=== PATIENT | female | born 1935 | race Two or more races ===

== ENCOUNTER 2022-06-01 21:10 | Inpatient (IN) | payer OTHER ==
[~2022-06-01] VITALS: Ht 147.3 cm; Wt 50.7 kg
[2022-06-01] MEDS ORDERED: MORPHINE SULFATE INJ 2 MG/ml SYRG IV PRN ×2 (22:15)
[2022-06-01] MEDS ORDERED: ACETAMINOPHEN 500 MG TAB PO PRN (22:15)
[2022-06-01] MEDS ORDERED: METOPROLOL TARTRATE 25 MG TAB PO ONE (22:15)
[2022-06-01] MEDS ORDERED: ONDANSETRON HCL 4 MG/2 ML VIAL IV PRN (22:15)
[2022-06-01] MEDS ORDERED: NITROGLYCERIN 0.4 MG SL TAB SL PRN (22:15)
[2022-06-02] VITALS (7 sets, daily range): BP systolic 124–153; BP diastolic 51–96
[2022-06-02] MEDS ORDERED: CLOP75TA70 PO (01:06)
[2022-06-02] MEDS ORDERED: ATOR40TA52 PO (01:06)
[2022-06-02] MEDS ORDERED: FENO160T8 PO (01:06)
[2022-06-02] MEDS ORDERED: ATEN50TA PO (01:06)
[2022-06-02] MEDS ORDERED: PAR20T PO (01:06)
[2022-06-02] MEDS ORDERED: MET25T PO (01:06)
[2022-06-02] MEDS ORDERED: LISI20TA28 PO (01:06)
[2022-06-02 06:07] LABS: Basophils # (auto) 0 10 ^3/uL (0-0.2); Basophils % (auto) 0.4 % (0.0-2.0); Eosinophils # (auto) 0.1 10 ^3/uL (0-0.8); Eosinophils % (auto) 1.1 % (0.0-7.0); Hematocrit 39.5 % (36.0-46.0); Hemoglobin 13.3 g/dL (12.2-16.2); Lymphocytes # (auto) 1.4 10 ^3/uL (0.4-5.4); Lymphocytes % (auto) 16.8 % (10.0-50.0); Mean Corpuscular Hemoglobin 27.9 pg (28.0-32.0); Mean Corpuscular Hgb Conc. 33.7 g/dL (32.0-36.0); Mean Corpuscular Volume 82.7 fL (80.0-100.0); Monocytes # (auto) 0.6 10 ^3/uL (0-1.3); Monocytes % (auto) 7.3 % (0.0-12.0); Neutrophils # (auto) 6.3 10 ^3/uL (1.6-8.6); Neutrophils % (auto) 74.4 % (37.0-80.0); Nucleated Red Blood Cells % 0.1 %; Red Blood Cells 4.78 10^6/uL (4.0-5.20); Red Cell Distribution Width 15.9 % (11.8-14.3); White Blood Cell 8.5 10^3/uL (4.4-10.8)
[2022-06-02 06:31] LABS: Calcium 10.5 mg/dL (8.5-10.1); Potassium 4.2 mmol/L (3.5-5.1)
[2022-06-02 06:36] LABS: BUN/Creatinine Ratio 41.3
[2022-06-02] MEDS: METOPROLOL TARTRATE 25 MG TAB PO SCH ×2 (08:18→22:02)
[2022-06-02] MEDS ORDERED: LISINOPRIL 10 MG TAB PO SCH (10:00)
[2022-06-02] MEDS: hydrALAZINE HCL 20 MG/ML VL IV PRN (12:13)
[2022-06-02] MEDS ORDERED: ALPRAZolam 0.25 MG TAB PO PRN (15:30)
[2022-06-02] MEDS ORDERED: ATORVASTATIN 20 MG TAB PO SCH (22:00)
[2022-06-02] MEDS: LISINOPRIL 10 MG TAB PO SCH (22:01)
[2022-06-03] MEDS: hydrALAZINE HCL 20 MG/ML VL IV PRN (04:04)
[2022-06-03 04:40] VITALS: BP 171/84
[2022-06-03 08:35] VITALS: BP 95/57
[2022-06-03 09:00] VITALS: BP 102/41
[2022-06-03] MEDS ORDERED: amLODIPine BESYLATE 5 MG TAB PO SCH (10:00)
[2022-06-03] MEDS ORDERED: PARoxetine 20 MG TAB PO SCH (10:00)
[2022-06-03] MEDS: METOPROLOL TARTRATE 25 MG TAB PO SCH ×2 (10:00→10:37)
[2022-06-03] MEDS: LISINOPRIL 10 MG TAB PO SCH ×2 (10:00→10:39)
[2022-06-03] MEDS ORDERED: CLOPIDOGREL BISULFATE 75 MG TAB PO SCH (10:00)
[2022-06-03 12:56] VITALS: BP 141/77
[2022-06-03] MEDS ORDERED: PAR20T PO (13:52)
[2022-06-03] MEDS ORDERED: MET25T PO (13:52)
[2022-06-03] MEDS ORDERED: AMLO-496 PO ×2 (13:52)
[2022-06-03] MEDS ORDERED: LISI20TA28 PO (13:52)
[2022-06-03 15:45] VITALS: BP 102/41
[2022-06-03 17:00] VITALS: BP 120/74
== END 2022-06-03 18:30 | disposition home or self-care (01) | DRG 313 ==
LOC: TELE-CENTR 21:10
PROVIDERS: ADMIT Hospitalist; ATTEND Hospitalist
DX: R07.9 Chest pain, unspecified (principal); F32.A Depression, unspecified; Z20.822 Contact with and (suspected) exposure to COVID-19; F41.9 Anxiety disorder, unspecified; I11.9 Hypertensive heart disease without heart failure; I25.2 Old myocardial infarction; Z82.49 Family history of ischemic heart disease and other diseases of the circulatory system; Z88.0 Allergy status to penicillin
CPT/HCPCS: 36415; 71275; 80048; 80061; 84484; 85025; 85379; 87081; 87426; 93306; G0378

== ENCOUNTER 2023-08-05 13:40 | Emergency (ER) | payer OTHER ==
[~2023-08-05] VITALS: Ht 162.6 cm; Wt 68.1 kg
[~2023-08-05 13:40] MED LIST: ATOR40TA52 PO; CLOP75TA70 PO; FENO160T PO; LISI20TA56 PO; MET25T PO; PAR20T PO
[2023-08-05] MEDS: SODIUM CHLORIDE 0.9% 1,650 ML IV ONE (14:15)
[2023-08-05 14:31] LABS: Eosinophils # (auto) 0.1 10 ^3/uL (0-0.8); Hematocrit 32.4 % (36.0-46.0); Lymphocytes # (auto) 1.2 10 ^3/uL (0.4-5.4); Monocytes # (auto) 0.6 10 ^3/uL (0-1.3)
[2023-08-05 14:34] LABS: Basophils # (auto) 0.1 10 ^3/uL (0-0.2); Basophils % (auto) 0.4 % (0.0-2.0); Eosinophils % (auto) 0.6 % (0.0-7.0); Hemoglobin 9.7 g/dL (12.2-16.2); Mean Corpuscular Hemoglobin 22.1 pg (28.0-32.0); Mean Corpuscular Hgb Conc. 30.1 g/dL (32.0-36.0); Mean Corpuscular Volume 73.6 fL (80.0-100.0); Monocytes % (auto) 4.1 % (0.0-12.0); Neutrophils % (auto) 86.9 % (37.0-80.0); Red Cell Distribution Width 17.8 % (11.8-14.3); White Blood Cell 14.9 10^3/uL (4.4-10.8)
[2023-08-05 14:44] LABS: INR 1.08 (0.9-1.15); Partial Thromboplastin Time 28.8 SEC (24.5-34.5); Prothrombin Time 11.4 sec (9.3-11.8)
[2023-08-05 15:11] LABS: Acetaminophen < 2.0 UG/ML (10.0-20.0); Albumin 4.1 g/dL (3.2-4.8); Alkaline Phosphatase 85 U/L (46-116); Anion Gap 3 (5-15); Aspartate Aminotransferase < 8 U/L (13-40); BUN/Creatinine Ratio 24.7 (10.0-20.0); Bilirubin, Total 0.3 mg/dL (0.2-1.0); Blood Alcohol < 3.0 mg/dL (<10); Blood Urea Nitrogen 21 mg/dL (9-23); Calcium 11.1 mg/dL (8.5-10.1); Carbon Dioxide 28 mmol/L (20-30); Chloride 110 mmol/L (98-107); Glucose 130 mg/dL (74-106); Magnesium 1.4 mg/dL (1.6-2.6); Potassium 4.5 mmol/L (3.5-5.1); Sodium 141 mmol/L (136-145); Total Protein 6.4 g/dL (5.7-8.2)
[2023-08-05 15:13] LABS: Salicylate < 3.0 mg/dL (2.8-20.0)
[2023-08-05 15:16] LABS: Alanine Aminotransferase < 9 U/L (7-40)
[2023-08-05] MEDS: MECLIZINE HCL 25 MG TAB PO ONE (15:47)
[2023-08-05] MEDS: CIPROFLOXACIN 400MG/200ML 200 ML IV ONE (16:17)
[2023-08-05] MEDS: FUROSEMIDE 40 MG/4 ML VIAL IV ONE (19:41)
[2023-08-05] MEDS: VANCOMYCIN 1GM/200ML 200 ML IV ONE (19:42)
[2023-08-05] MEDS: AZTREONAM 1GM INJ 1 GM in D5W 5% 50 ML IV ONE (22:15)
[2023-08-05 22:25] LABS: Urine Bacteria FEW /hpf (None Seen); Urine Blood Negative /uL (Negative); Urine Clarity Clear (Clear); Urine Color Colorless (Yellow); Urine Protein, UAD Negative (Negative); Urine Specific Gravity 1.006 (1.001-1.035); Urine Urobilinogen Normal (Negative); Urine WBC 14 /hpf (0 - 5)
[2023-08-05 22:29] LABS: Amphetamine Screen, Urine Neg (NEGATIVE)
[2023-08-05 22:30] LABS: Barbiturate Scree,Urine Neg (NEGATIVE); Benzodiazephine Screen, Urine Neg (NEGATIVE); Cocaine Screen, Urine Neg (NEGATIVE); Opiate Scree,Urine Neg (NEGATIVE)
[2023-08-05 22:31] LABS: Cannabinoid Screen, Urine Neg (NEGATIVE); Phencyclidine Screen, Urine Neg (NEGATIVE)
[2023-08-05 23:24] VITALS: BP 153/95; PULSE 120; RESP 16; TEMP 98.8; O2SAT 97
[2023-08-05] MEDS: ASPirin-EC 325mg tab PO ONE (23:32)
== END 2023-08-05 23:44 | disposition short-term general hospital (02) ==
LOC: ER 13:40
DX: I63.9 Cerebral infarction, unspecified (principal); A41.9 Sepsis, unspecified organism; I10 Essential (primary) hypertension; D72.829 Elevated white blood cell count, unspecified; G93.89 Other specified disorders of brain; R00.0 Tachycardia, unspecified; R09.89 Other specified symptoms and signs involving the circulatory and respiratory systems; Z79.899 Other long term (current) drug therapy
CPT/HCPCS: 36415; 70450; 71045; 80053; 80307; 80320; 80329; 81001; 83605; 83735; 83880; 84484; 85025; 85610; 85730; 87040; 93005; 96361; 96365; 96367; 96375; 99291; J0744; J1940; J3370; J7030; J7040; J7060; J8597

== ENCOUNTER 2023-08-22 14:39 | Inpatient (IN) | payer OTHER ==
[~2023-08-22] VITALS: Ht 147.3 cm; Wt 51.5 kg
[2023-08-22 18:00] VITALS: PULSE 71; RESP 21; O2SAT 96
[2023-08-22 18:04] LABS: Eosinophils # (auto) 0.1 10 ^3/uL (0-0.8); Monocytes # (auto) 0.8 10 ^3/uL (0-1.3); Neutrophils # (auto) 14.8 10 ^3/uL (1.6-8.6)
[2023-08-22 18:06] LABS: Basophils # (auto) 0.1 10 ^3/uL (0-0.2); Basophils % (auto) 0.4 % (0.0-2.0); Eosinophils % (auto) 0.5 % (0.0-7.0); Hematocrit 33.2 % (36.0-46.0); Hemoglobin 10.4 g/dL (12.2-16.2); Lymphocytes # (auto) 1.2 10 ^3/uL (0.4-5.4); Lymphocytes % (auto) 7.3 % (10.0-50.0); Mean Corpuscular Hemoglobin 24.7 pg (28.0-32.0); Mean Corpuscular Hgb Conc. 31.2 g/dL (32.0-36.0); Mean Corpuscular Volume 78.9 fL (80.0-100.0); Neutrophils % (auto) 86.8 % (37.0-80.0); Red Cell Distribution Width 26.8 % (11.8-14.3)
[2023-08-22 18:11] LABS: Chloride 106 mmol/L (98-107); Sodium 140 mmol/L (136-145)
[2023-08-22 18:12] LABS: Anion Gap 3 (5-15); Calcium 10.9 mg/dL (8.5-10.1); Carbon Dioxide 31 mmol/L (20-30)
[2023-08-22 18:17] LABS: Blood Urea Nitrogen 20 mg/dL (9-23); Glucose 81 mg/dL (74-106)
[2023-08-22 18:27] LABS: Urine Bacteria None Seen /hpf (None Seen)
[2023-08-22 18:42] LABS: Urine Blood 1+ /uL (Negative); Urine Clarity Turbid (Clear); Urine Color Yellow (Yellow); Urine Hyaline Cast FEW /lpf (0 - 2); Urine Mucus FEW (None Seen); Urine Protein, UAD 1+ (Negative); Urine Specific Gravity 1.023 (1.001-1.035); Urine Urobilinogen 3 mg/dL (Negative); Urine WBC 365 /hpf (0 - 5); Urine WBC Clumps PRESENT /hpf (None Seen)
[2023-08-22] MEDS: FUROSEMIDE 40 MG/4 ML VIAL IV ONE (19:05)
[2023-08-22] MEDS: methylPREDNISolone SOD SUCC 125 MG/2 ML VL IV ONE (19:06)
[2023-08-22 20:00] VITALS: PULSE 76; RESP 20; O2SAT 96
[2023-08-22 20:02] LABS: Rapid Influenza A Negative (Negative); Rapid Influenza B Negative (Negative)
[2023-08-22 20:03] LABS: COVID19 ANTIGEN SOFIA FIA NEGATIVE (NEGATIVE)
[2023-08-22] MEDS ORDERED: MORPHINE SULFATE INJ 2 MG/ml SYRG IV PRN (23:00)
[2023-08-22] MEDS ORDERED: ONDANSETRON HCL 4 MG/2 ML VIAL IV PRN (23:00)
[2023-08-22] MEDS ORDERED: HYDROcodone-ACET 5/325MG TAB PO PRN (23:00)
[2023-08-22] MEDS ORDERED: NITROGLYCERIN 0.4 MG SL TAB SL PRN (23:00)
[2023-08-23] VITALS (22 sets, daily range): BP systolic 104–138; BP diastolic 54–78; PULSE 73–110; RESP 16–22; TEMP 97.4–98.7; O2SAT 93–100
[2023-08-23] MEDS: IPRATROPIUM BROM 0.5 MG/2.5ML INH SOL NEB SCH (02:20)
[2023-08-23] MEDS: ALBUTEROL SULF 2.5 MG/0.5ML(0.5%) NEB SOLN NEB SCH (02:20)
[2023-08-23] MEDS: IOHEXOL 350 MG/ML 100ML IJ ONE (04:16)
[2023-08-23] MEDS: METOPROLOL TARTRATE 25 MG TAB PO SCH (05:45)
[2023-08-23] MEDS: hydrALAZINE HCL 20 MG/ML VL IV PRN (06:35)
[2023-08-23 06:46] LABS: Basophils # (auto) 0 10 ^3/uL (0-0.2); Basophils % (auto) 0.1 % (0.0-2.0); Eosinophils # (auto) 0 10 ^3/uL (0-0.8); Hemoglobin 10.5 g/dL (12.2-16.2); Lymphocytes # (auto) 0.4 10 ^3/uL (0.4-5.4); Mean Corpuscular Hemoglobin 24.7 pg (28.0-32.0); Monocytes # (auto) 0.1 10 ^3/uL (0-1.3); Neutrophils % (auto) 96.4 % (37.0-80.0)
[2023-08-23 06:49] LABS: Hematocrit 33.6 % (36.0-46.0); Lymphocytes % (auto) 2.8 % (10.0-50.0); Mean Corpuscular Hgb Conc. 31.2 g/dL (32.0-36.0); Mean Corpuscular Volume 79.4 fL (80.0-100.0); Monocytes % (auto) 0.7 % (0.0-12.0); Neutrophils # (auto) 12.9 10 ^3/uL (1.6-8.6); Red Blood Cells 4.24 10^6/uL (4.0-5.20); White Blood Cell 13.4 10^3/uL (4.4-10.8)
[2023-08-23 06:54] LABS: Chloride 104 mmol/L (98-107); Potassium 3.5 mmol/L (3.5-5.1); Sodium 140 mmol/L (136-145)
[2023-08-23 06:55] LABS: Anion Gap 6 (5-15); Calcium 10.8 mg/dL (8.5-10.1); Carbon Dioxide 30 mmol/L (20-30)
[2023-08-23 07:00] LABS: BUN/Creatinine Ratio 19.1 (10.0-20.0); Blood Urea Nitrogen 13 mg/dL (9-23); Glucose 156 mg/dL (74-106)
[2023-08-23 07:11] LABS: Red Cell Distribution Width 27.6 % (11.8-14.3)
[2023-08-23 08:16] LABS: Anisocytosis Moderate; Hypochromia Slight
[2023-08-23 08:17] LABS: Platelet Estimate Adequate; Tear Drop Cells FEW
[2023-08-23] MEDS: methylPREDNISolone SOD SUCC 40 MG/ML VL IV SCH (09:51)
[2023-08-23] MEDS: levoFLOXacin 500MG 100 ML IV SCH (09:51)
[2023-08-23] MEDS: FUROSEMIDE 20 MG/2 ML VIAL IV SCH (09:57)
[2023-08-23] MEDS ORDERED: METOPROLOL TARTRATE 25 MG TAB PO SCH (10:00)
[2023-08-24] VITALS (16 sets, daily range): BP systolic 115–159; BP diastolic 61–83; PULSE 78–118; RESP 17–21; TEMP 97.4–98.9; O2SAT 94–100
[2023-08-24 05:39] LABS: Basophils # (auto) 0 10 ^3/uL (0-0.2); Eosinophils # (auto) 0 10 ^3/uL (0-0.8); Hemoglobin 10.6 g/dL (12.2-16.2); Lymphocytes # (auto) 0.6 10 ^3/uL (0.4-5.4); Monocytes # (auto) 0.4 10 ^3/uL (0-1.3)
[2023-08-24 05:41] LABS: Basophils % (auto) 0.1 % (0.0-2.0); Mean Corpuscular Hemoglobin 24.7 pg (28.0-32.0); Mean Corpuscular Hgb Conc. 31.2 g/dL (32.0-36.0); Mean Corpuscular Volume 79.3 fL (80.0-100.0); Monocytes % (auto) 2.6 % (0.0-12.0); Neutrophils # (auto) 14.6 10 ^3/uL (1.6-8.6); Neutrophils % (auto) 93.3 % (37.0-80.0); Red Blood Cells 4.28 10^6/uL (4.0-5.20); White Blood Cell 15.7 10^3/uL (4.4-10.8)
[2023-08-24 05:51] LABS: Chloride 104 mmol/L (98-107); Potassium 3.9 mmol/L (3.5-5.1); Sodium 139 mmol/L (136-145)
[2023-08-24 05:52] LABS: Anion Gap 4 (5-15); Calcium 11.4 mg/dL (8.7-10.4); Carbon Dioxide 31 mmol/L (20-30)
[2023-08-24 05:57] LABS: BUN/Creatinine Ratio 22.7 (10.0-20.0); Blood Urea Nitrogen 20 mg/dL (9-23); Glucose 144 mg/dL (74-106)
[2023-08-24 06:04] LABS: Red Cell Distribution Width 27.7 % (11.8-14.3)
[2023-08-24] MEDS: DOCUSATE SOD 100 MG CAP PO PRN (06:27)
[2023-08-24 07:05] LABS: Anisocytosis Moderate; Hypochromia Slight; Ovalocytes FEW; Platelet Estimate Adequate
[2023-08-24] MEDS: ALBUTEROL SULF 2.5 MG/0.5ML(0.5%) NEB SOLN NEB SCH (14:01)
[2023-08-24] MEDS: ACETAMINOPHEN 325 MG TAB PO PRN (16:22)
[2023-08-24] MEDS: MELATONIN 5 MG TAB PO ONE (21:09)
[2023-08-24] MEDS: IPRATROPIUM BROM 0.5 MG/2.5ML INH SOL NEB SCH (21:55)
[2023-08-25] VITALS (12 sets, daily range): BP systolic 113–165; BP diastolic 65–96; PULSE 77–110; RESP 17–79; TEMP 97.4–98.6; O2SAT 94–99
[2023-08-25 05:48] LABS: Basophils # (auto) 0 10 ^3/uL (0-0.2); Eosinophils # (auto) 0 10 ^3/uL (0-0.8); Hematocrit 32.7 % (36.0-46.0); Hemoglobin 10.3 g/dL (12.2-16.2); Lymphocytes # (auto) 0.5 10 ^3/uL (0.4-5.4); Lymphocytes % (auto) 3.6 % (10.0-50.0); Mean Corpuscular Hemoglobin 24.9 pg (28.0-32.0); Mean Corpuscular Hgb Conc. 31.6 g/dL (32.0-36.0); Mean Corpuscular Volume 78.9 fL (80.0-100.0); Monocytes # (auto) 0.3 10 ^3/uL (0-1.3); Monocytes % (auto) 2.2 % (0.0-12.0); Neutrophils # (auto) 13.6 10 ^3/uL (1.6-8.6); Neutrophils % (auto) 94.2 % (37.0-80.0); Red Blood Cells 4.14 10^6/uL (4.0-5.20); White Blood Cell 14.4 10^3/uL (4.4-10.8)
[2023-08-25 05:49] LABS: Red Cell Distribution Width 27.3 % (11.8-14.3)
[2023-08-25 06:15] LABS: Calcium 11.2 mg/dL (8.5-10.1); Chloride 104 mmol/L (98-107); Sodium 139 mmol/L (136-145)
[2023-08-25 06:16] LABS: Anion Gap 3 (5-15); Carbon Dioxide 32 mmol/L (20-30)
[2023-08-25 06:21] LABS: BUN/Creatinine Ratio 34.8 (10.0-20.0); Glucose 147 mg/dL (74-106)
[2023-08-25 06:22] LABS: Blood Urea Nitrogen 32 mg/dL (9-23)
[2023-08-25] MEDS ORDERED: FURO40TA4 PO (12:47)
[2023-08-25] MEDS ORDERED: IPRA0.00 IN (12:47)
[2023-08-25] MEDS ORDERED: LISI20TA56 PO (12:47)
[2023-08-25] MEDS ORDERED: PRED20TA2 PO (12:47)
[2023-08-25] MEDS ORDERED: LEVO500T91 PO (12:47)
== END 2023-08-25 17:00 | disposition home health service (06) | DRG 291 ==
LOC: EDBD 14:39 → ER 14:41 → TELE 23:10 → TELE-WESTW 23:10
PROVIDERS: ADMIT Nurse Practitioner Family; ATTEND Internal Medicine
DX: I11.0 Hypertensive heart disease with heart failure (principal); I50.33 Acute on chronic diastolic (congestive) heart failure; J96.01 Acute respiratory failure with hypoxia; J44.1 Chronic obstructive pulmonary disease with (acute) exacerbation; N39.0 Urinary tract infection, site not specified; J43.9 Emphysema, unspecified; G93.9 Disorder of brain, unspecified; R53.81 Other malaise; Z20.822 Contact with and (suspected) exposure to COVID-19; F17.210 Nicotine dependence, cigarettes, uncomplicated; I71.9 Aortic aneurysm of unspecified site, without rupture; R00.0 Tachycardia, unspecified; Z88.0 Allergy status to penicillin; Z82.49 Family history of ischemic heart disease and other diseases of the circulatory system; Z79.899 Other long term (current) drug therapy; Z79.02 Long term (current) use of antithrombotics/antiplatelets; Z71.6 Tobacco abuse counseling
CPT/HCPCS: 36415; 71045; 71275; 80048; 81001; 83605; 83880; 84484; 85025; 85379; 87040; 87086; 87088; 87186; 87426; 87804; 93005; 93306; 93970; 94640; 96374; 96375; G0378; J1956

== ENCOUNTER 2023-09-08 12:33 | Inpatient (IN) | payer OTHER ==
[~2023-09-08] VITALS: Ht 165.1 cm; Wt 44.4 kg
[2023-09-08 01:00] VITALS: BP 161/95; PULSE 114; RESP 21; TEMP 98.4; O2SAT 97
[~2023-09-08 12:33] MED LIST changes: +FURO40TA4 PO; +IPRA0.00 IN; +LEVO500T91 PO; +PRED20TA2 PO
[2023-09-08 14:02] LABS: Basophils # (auto) 0.1 10 ^3/uL (0-0.2); Eosinophils # (auto) 0.1 10 ^3/uL (0-0.8); Eosinophils % (auto) 0.6 % (0.0-7.0); Hemoglobin 11.3 g/dL (12.2-16.2); Monocytes # (auto) 1.1 10 ^3/uL (0-1.3); Monocytes % (auto) 5.8 % (0.0-12.0)
[2023-09-08 14:03] LABS: Basophils % (auto) 0.7 % (0.0-2.0); Hematocrit 35.3 % (36.0-46.0); Lymphocytes # (auto) 1.2 10 ^3/uL (0.4-5.4); Mean Corpuscular Hemoglobin 25.5 pg (28.0-32.0); Mean Corpuscular Volume 79.5 fL (80.0-100.0); Neutrophils # (auto) 17.1 10 ^3/uL (1.6-8.6); Neutrophils % (auto) 86.9 % (37.0-80.0); Red Blood Cells 4.44 10^6/uL (4.0-5.20); White Blood Cell 19.7 10^3/uL (4.4-10.8)
[2023-09-08 14:07] LABS: Red Cell Distribution Width 26.5 % (11.8-14.3)
[2023-09-08 14:21] LABS: Albumin 4.2 g/dL (3.2-4.8); Alkaline Phosphatase 85 U/L (46-116); Anion Gap 7 (5-15); Aspartate Aminotransferase 11 U/L (13-40); BUN/Creatinine Ratio 23.9 (10.0-20.0); Bilirubin, Total 0.4 mg/dL (0.2-1.0); Blood Urea Nitrogen 16 mg/dL (9-23); Calcium 11.2 mg/dL (8.5-10.1); Carbon Dioxide 26 mmol/L (20-30); Chloride 107 mmol/L (98-107); Glucose 79 mg/dL (74-106); Potassium 3.4 mmol/L (3.5-5.1); Sodium 140 mmol/L (136-145); Total Protein 6.6 g/dL (5.7-8.2)
[2023-09-08 14:22] LABS: Alanine Aminotransferase < 9 U/L (7-40)
[2023-09-08 14:24] LABS: Anisocytosis Moderate; Ovalocytes FEW; Platelet Estimate Adequate; Tear Drop Cells FEW
[2023-09-08 15:00] VITALS: PULSE 155; RESP 24; O2SAT 96
[2023-09-08] MEDS: ADENOSINE 6 MG/2 ML INJ IV ONE (15:10)
[2023-09-08] MEDS: SODIUM CHLORIDE 0.9% 1,000 ML IV ONE (15:30)
[2023-09-08 15:48] LABS: Urine Bacteria None Seen /hpf (None Seen)
[2023-09-08] MEDS: dilTIAZem 25 MG/5 ML VIAL IV ONE (15:51)
[2023-09-08] MEDS: levoFLOXacin 500MG 100 ML IV ONE (15:51)
[2023-09-08 16:22] LABS: Urine Blood 3+ /uL (Negative); Urine Clarity Ex.Turbid (Clear); Urine Color Light-Red (Yellow); Urine Protein, UAD 1+ (Negative); Urine Specific Gravity 1.008 (1.001-1.035); Urine Urobilinogen Normal (Negative); Urine WBC 422 /hpf (0 - 5); Urine pH 5.5 (5.0-9.0)
[2023-09-08] MEDS ORDERED: ERTAPENEM SOD INJ 1 GM in SODIUM CHL 0.9% 50 ML IV ONE (18:00)
[2023-09-08] MEDS ORDERED: HYDROcodone-ACET 5/325MG TAB PO PRN ×2 (18:00→18:15)
[2023-09-08] MEDS ORDERED: NITROGLYCERIN 0.4 MG SL TAB SL PRN ×2 (18:00→18:15)
[2023-09-08] MEDS ORDERED: SOD CHL 0.45% 1,000 ML IV SCH (18:00)
[2023-09-08] MEDS ORDERED: MORPHINE SULFATE INJ 2 MG/ml SYRG IV PRN ×2 (18:00→18:15)
[2023-09-08] MEDS ORDERED: ONDANSETRON HCL 4 MG/2 ML VIAL IV PRN ×2 (18:00→18:15)
[2023-09-08] MEDS ORDERED: ACETAMINOPHEN 325 MG TAB PO PRN ×2 (18:00→18:15)
[2023-09-08] MEDS ORDERED: IPRATROPIUM BROM 0.5 MG/2.5ML INH SOL NEB SCH (18:00)
[2023-09-08 18:34] VITALS: BP 125/89; PULSE 146; RESP 16; TEMP 98.7; O2SAT 96
[2023-09-08 18:53] VITALS: O2SAT 98
[2023-09-08] MEDS: SOD CHL 0.45% 1,000 ML IV SCH (19:30)
[2023-09-08 20:00] VITALS: PULSE 142; RESP 22; O2SAT 96
[2023-09-08] MEDS: METOPROLOL TARTRATE 25 MG TAB PO SCH (20:08)
[2023-09-08] MEDS: METOPROLOL TARTRATE 1MG/1ML-5ML VIAL IV ONE (20:20)
[2023-09-08] MEDS: ERTAPENEM SOD INJ 1 GM in SODIUM CHL 0.9% 50 ML IV ONE (20:30)
[2023-09-08] MEDS: ERTAPENEM SOD 1 GM INJ VIAL ONE (21:10)
[2023-09-08] MEDS ORDERED: METOPROLOL TARTRATE 25 MG TAB PO SCH (22:00)
[2023-09-08 23:50] VITALS: BP 155/97; PULSE 100; PULSE 83; RESP 16; RESP 18; TEMP 97.9; O2SAT 95
[2023-09-09] VITALS (15 sets, daily range): BP systolic 119–164; BP diastolic 64–94; PULSE 91–121; RESP 16–21; TEMP 97.5–99; O2SAT 93–100
[2023-09-09] MEDS: dilTIAZem 25 MG/5 ML VIAL IV ONE (00:54)
[2023-09-09] MEDS: IPRATROPIUM BROM 0.5 MG/2.5ML INH SOL NEB SCH (05:58)
[2023-09-09] MEDS: MAGNESIUM SULFATE 1GM/100ML 100 ML IV SCH (07:00)
[2023-09-09] MEDS: POTASSIUM CHL 20MEQ/100ML 100 ML IV SCH (07:11)
[2023-09-09] MEDS: ERTAPENEM SOD INJ 1 GM in SODIUM CHL 0.9% 50 ML IV SCH (10:00)
[2023-09-09] MEDS ORDERED: FUROSEMIDE 40 MG TAB PO SCH (10:00)
[2023-09-09] MEDS ORDERED: PARoxetine 20 MG TAB PO SCH (10:00)
[2023-09-09] MEDS: CLOPIDOGREL BISULFATE 75 MG TAB PO SCH (10:00)
[2023-09-09] MEDS ORDERED: ERTAPENEM SOD INJ 1 GM in SODIUM CHL 0.9% 50 ML IV SCH (10:00)
[2023-09-09] MEDS ORDERED: LISINOPRIL 20 MG TAB PO SCH (10:00)
[2023-09-09] MEDS ORDERED: CLOPIDOGREL BISULFATE 75 MG TAB PO SCH (10:00)
[2023-09-09] MEDS ORDERED: PATIENTS OWN MEDICATION (Atorvastatin Calcium 1 TAB) PO SCH (10:00)
[2023-09-09 10:23] LABS: Calcium 10.4 mg/dL (8.5-10.1); Chloride 107 mmol/L (98-107); Potassium 3.6 mmol/L (3.5-5.1); Sodium 139 mmol/L (136-145)
[2023-09-09 10:24] LABS: Anion Gap 4 (5-15); Carbon Dioxide 28 mmol/L (20-30)
[2023-09-09 10:29] LABS: BUN/Creatinine Ratio 21.4 (10.0-20.0); Blood Urea Nitrogen 15 mg/dL (9-23); Glucose 156 mg/dL (74-106)
[2023-09-09] MEDS: FUROSEMIDE 40 MG TAB PO SCH (11:48)
[2023-09-09] MEDS: ATORVASTATIN 20 MG TAB PO SCH (11:49)
[2023-09-09] MEDS: LISINOPRIL 20 MG TAB PO SCH (11:49)
[2023-09-09] MEDS: PARoxetine 20 MG TAB PO SCH (11:50)
[2023-09-10] VITALS (15 sets, daily range): BP systolic 93–149; BP diastolic 47–84; PULSE 72–112; RESP 14–20; TEMP 97.2–98.7; O2SAT 93–100
[2023-09-10 07:12] LABS: Calcium 10.7 mg/dL (8.5-10.1); Carbon Dioxide 24 mmol/L (20-30)
[2023-09-10 07:14] LABS: Chloride 105 mmol/L (98-107); Potassium 3.9 mmol/L (3.5-5.1)
[2023-09-10 07:15] LABS: Anion Gap 5 (5-15); Sodium 134 mmol/L (136-145)
[2023-09-10 07:18] LABS: BUN/Creatinine Ratio 16.2 (10.0-20.0); Blood Urea Nitrogen 11 mg/dL (9-23); Glucose 80 mg/dL (74-106)
[2023-09-10 07:20] LABS: INR 1.13 (0.9-1.15); Partial Thromboplastin Time 26.1 SEC (24.5-34.5); Prothrombin Time 11.9 sec (9.3-11.8)
[2023-09-10 09:28] LABS: Eosinophils # (auto) 0.1 10 ^3/uL (0-0.8); Hemoglobin 11.2 g/dL (12.2-16.2); Lymphocytes # (auto) 0.7 10 ^3/uL (0.4-5.4); Mean Corpuscular Hemoglobin 25.6 pg (28.0-32.0); Monocytes # (auto) 0.8 10 ^3/uL (0-1.3); Neutrophils % (auto) 90.2 % (37.0-80.0)
[2023-09-10 09:30] LABS: Basophils # (auto) 0.1 10 ^3/uL (0-0.2); Basophils % (auto) 0.4 % (0.0-2.0); Eosinophils % (auto) 0.3 % (0.0-7.0); Hematocrit 35.4 % (36.0-46.0); Lymphocytes % (auto) 4.1 % (10.0-50.0); Mean Corpuscular Hgb Conc. 31.6 g/dL (32.0-36.0); Mean Corpuscular Volume 80.9 fL (80.0-100.0); Red Blood Cells 4.37 10^6/uL (4.0-5.20); Red Cell Distribution Width 25.3 % (11.8-14.3); White Blood Cell 16.7 10^3/uL (4.4-10.8)
[2023-09-10] MEDS ORDERED: PARO1TAB33 PO (12:21)
[2023-09-10] MEDS ORDERED: METO-159 PO (12:21)
[2023-09-10] MEDS ORDERED: OMEP20TA PO (12:23)
[2023-09-10] MEDS: MUPIROCIN 2% OINT 15gm or 22gm FOR MRSA NARES EACHNOSTRI SCH (21:55)
[2023-09-11] VITALS (13 sets, daily range): BP systolic 91–135; BP diastolic 52–80; PULSE 61–122; RESP 14–20; TEMP 98–98.6; O2SAT 91–100
[2023-09-11 07:11] LABS: Basophils # (auto) 0 10 ^3/uL (0-0.2); Eosinophils # (auto) 0.1 10 ^3/uL (0-0.8)
[2023-09-11 07:14] LABS: Basophils % (auto) 0.3 % (0.0-2.0); Eosinophils % (auto) 0.9 % (0.0-7.0); Hemoglobin 10.8 g/dL (12.2-16.2); Lymphocytes # (auto) 0.8 10 ^3/uL (0.4-5.4); Lymphocytes % (auto) 5.3 % (10.0-50.0); Mean Corpuscular Hemoglobin 25.4 pg (28.0-32.0); Mean Corpuscular Hgb Conc. 31.7 g/dL (32.0-36.0); Mean Corpuscular Volume 80.3 fL (80.0-100.0); Monocytes # (auto) 0.8 10 ^3/uL (0-1.3); Monocytes % (auto) 5.8 % (0.0-12.0); Neutrophils # (auto) 12.7 10 ^3/uL (1.6-8.6); Neutrophils % (auto) 87.7 % (37.0-80.0); Red Blood Cells 4.24 10^6/uL (4.0-5.20); White Blood Cell 14.5 10^3/uL (4.4-10.8)
[2023-09-11 07:16] LABS: Red Cell Distribution Width 25.6 % (11.8-14.3)
[2023-09-11] MEDS ORDERED: MUPI2OIN2 EACHNOSTRI (10:59)
== END 2023-09-11 17:30 | disposition home health service (06) | DRG 699 ==
LOC: EDBD 12:33 → ER 12:33 → TELE-CENTR 17:53 → TELE 17:58 → TELE-CENTR 23:59
PROVIDERS: ADMIT Hospitalist; ATTEND Hospitalist
PROC: 05H933Z Insertion of Infusion Device into Right Brachial Vein, Percutaneous Approach (ICD-10-PCS; principal; 2023-09-10)
PROC: B54MZZA Ultrasonography of Right Upper Extremity Veins, Guidance (ICD-10-PCS; 2023-09-10)
DX: T83.511A Infection and inflammatory reaction due to indwelling urethral catheter, initial encounter (principal); I47.20 Ventricular tachycardia, unspecified; J96.10 Chronic respiratory failure, unspecified whether with hypoxia or hypercapnia; Z16.12 Extended spectrum beta lactamase (ESBL) resistance; N39.0 Urinary tract infection, site not specified; E86.0 Dehydration; E83.42 Hypomagnesemia; E78.5 Hyperlipidemia, unspecified; J44.9 Chronic obstructive pulmonary disease, unspecified; I50.9 Heart failure, unspecified; I11.0 Hypertensive heart disease with heart failure; B96.20 Unspecified Escherichia coli [E. coli] as the cause of diseases classified elsewhere; I25.2 Old myocardial infarction; Z88.0 Allergy status to penicillin; Z87.891 Personal history of nicotine dependence; Z82.49 Family history of ischemic heart disease and other diseases of the circulatory system
CPT/HCPCS: 36415; 71045; 80048; 80053; 81001; 83605; 83735; 84484; 85025; 85610; 85730; 87040; 87081; 87086; 87088; 87186; 93005; 94640; 97163; G0378; J0153; J1335; J1956; J3480

== ENCOUNTER 2023-09-14 17:31 | Inpatient (IN) | payer OTHER ==
[~2023-09-14] VITALS: Ht 152.4 cm; Wt 49.1 kg
[~2023-09-14 17:31] MED LIST changes: -LEVO500T91 PO; -MET25T PO; +METO-159 PO; +MUPI2OIN2 EACHNOSTRI; +OMEP20TA PO; -PAR20T PO; +PARO1TAB33 PO; -PRED20TA2 PO
[2023-09-14 18:12] VITALS: PULSE 106; RESP 20; O2SAT 96
[2023-09-14 18:18] LABS: Basophils # (auto) 0 10 ^3/uL (0-0.2); Basophils % (auto) 0.3 % (0.0-2.0); Eosinophils # (auto) 0.1 10 ^3/uL (0-0.8); Eosinophils % (auto) 0.8 % (0.0-7.0); Hematocrit 30.7 % (36.0-46.0); Hemoglobin 9.7 g/dL (12.2-16.2); Lymphocytes % (auto) 9.2 % (10.0-50.0); Mean Corpuscular Hemoglobin 25.1 pg (28.0-32.0); Mean Corpuscular Hgb Conc. 31.7 g/dL (32.0-36.0); Mean Corpuscular Volume 79.2 fL (80.0-100.0); Monocytes # (auto) 0.7 10 ^3/uL (0-1.3); Monocytes % (auto) 6.8 % (0.0-12.0); Neutrophils # (auto) 8.8 10 ^3/uL (1.6-8.6); Neutrophils % (auto) 82.9 % (37.0-80.0); Red Blood Cells 3.88 10^6/uL (4.0-5.20); White Blood Cell 10.6 10^3/uL (4.4-10.8)
[2023-09-14 18:19] LABS: Red Cell Distribution Width 24.6 % (11.8-14.3)
[2023-09-14 18:45] LABS: Albumin 3.3 g/dL (3.2-4.8); Alkaline Phosphatase 82 U/L (46-116); Anion Gap 6 (5-15); Aspartate Aminotransferase 10 U/L (13-40); BUN/Creatinine Ratio 25.5 (10.0-20.0); Blood Urea Nitrogen 24 mg/dL (9-23); Calcium 9.9 mg/dL (8.5-10.1); Carbon Dioxide 29 mmol/L (20-30); Chloride 107 mmol/L (98-107); Glucose 97 mg/dL (74-106); Potassium 2.7 mmol/L (3.5-5.1); Sodium 142 mmol/L (136-145)
[2023-09-14 18:46] LABS: Bilirubin, Total 0.2 mg/dL (0.2-1.0); Total Protein 5.4 g/dL (5.7-8.2)
[2023-09-14 18:47] LABS: Alanine Aminotransferase < 9 U/L (7-40)
[2023-09-14 18:55] LABS: Urine Bacteria None Seen /hpf (None Seen)
[2023-09-14 19:46] LABS: Urine WBC 81 /hpf (0 - 5)
[2023-09-14 19:48] LABS: Urine Clarity TURBID (Clear); Urine Color Red (Yellow); Urine Protein, UAD 2+ (Negative); Urine Specific Gravity 1.021 (1.001-1.035); Urine Urobilinogen Normal (Negative); Urine pH 5.5 (5.0-9.0)
[2023-09-14 19:49] LABS: Urine Blood 3+ /uL (Negative)
[2023-09-14 19:49] LABS: INR 1.16 (0.9-1.15); Prothrombin Time 12.2 sec (9.3-11.8)
[2023-09-14] MEDS ORDERED: METOPROLOL TARTRATE 1MG/1ML-5ML VIAL IV ONE (21:00)
[2023-09-14] MEDS: POTASSIUM CHL 20MEQ/100ML 100 ML IV SCH (23:11)
[2023-09-14] MEDS ORDERED: ONDANSETRON HCL 4 MG/2 ML VIAL IV PRN (23:15)
[2023-09-14] MEDS: SODIUM CHLORIDE 0.9% 1,000 ML IV ONE (23:15)
[2023-09-14] MEDS ORDERED: ACETAMINOPHEN 325 MG TAB PO PRN (23:15)
[2023-09-15] VITALS (9 sets, daily range): BP systolic 130–143; BP diastolic 76–90; PULSE 83–115; RESP 18–20; TEMP 97.2–97.9; O2SAT 95–100
[2023-09-15] MEDS: MAGNESIUM SULFATE 1GM/100ML 100 ML IV SCH (02:48)
[2023-09-15 06:16] LABS: Basophils # (auto) 0 10 ^3/uL (0-0.2); Eosinophils # (auto) 0.1 10 ^3/uL (0-0.8); Hemoglobin 8.8 g/dL (12.2-16.2); Lymphocytes # (auto) 0.8 10 ^3/uL (0.4-5.4); Neutrophils # (auto) 8.2 10 ^3/uL (1.6-8.6); White Blood Cell 9.7 10^3/uL (4.4-10.8)
[2023-09-15 06:22] LABS: Basophils % (auto) 0.2 % (0.0-2.0); Hematocrit 27.5 % (36.0-46.0); Lymphocytes % (auto) 8.1 % (10.0-50.0); Mean Corpuscular Hemoglobin 25.8 pg (28.0-32.0); Mean Corpuscular Hgb Conc. 32.2 g/dL (32.0-36.0); Mean Corpuscular Volume 80.1 fL (80.0-100.0); Monocytes # (auto) 0.6 10 ^3/uL (0-1.3); Neutrophils % (auto) 84.7 % (37.0-80.0); Red Blood Cells 3.43 10^6/uL (4.0-5.20); Red Cell Distribution Width 24.4 % (11.8-14.3)
[2023-09-15 06:33] LABS: Anion Gap 5 (5-15); Carbon Dioxide 26 mmol/L (20-30); Chloride 101 mmol/L (98-107); Potassium 3.3 mmol/L (3.5-5.1)
[2023-09-15 06:34] LABS: Calcium 9.3 mg/dL (8.7-10.4)
[2023-09-15 06:39] LABS: Blood Urea Nitrogen 18 mg/dL (9-23); Glucose 391 mg/dL (74-106)
[2023-09-15 06:52] LABS: Sodium 132 mmol/L (136-145)
[2023-09-15] MEDS: CEFEPIME 1GM/ 50ML 50 ML IV SCH (08:11)
[2023-09-15] MEDS: PANTOPRAZOLE 40 MG/10 ML VIAL INJ IV SCH (08:12)
[2023-09-15] MEDS ORDERED: cefTRIAXone 1GM/50ML D5W 50 ML IV SCH ×2 (09:00→10:00)
[2023-09-15] MEDS: SODIUM CHLORIDE 0.9% 1,000 ML IV ONE (16:44)
[2023-09-16] VITALS (8 sets, daily range): BP systolic 127–158; BP diastolic 82–102; PULSE 94–127; RESP 19–20; TEMP 97.9–98.2; O2SAT 94–99
[2023-09-16 07:03] LABS: Hemoglobin 9.2 g/dL (12.2-16.2); White Blood Cell 11.7 10^3/uL (4.4-10.8)
[2023-09-16 07:09] LABS: Hematocrit 28.7 % (36.0-46.0); Mean Corpuscular Hemoglobin 25.5 pg (28.0-32.0); Mean Corpuscular Volume 79.6 fL (80.0-100.0)
[2023-09-16 07:15] LABS: Red Cell Distribution Width 24.2 % (11.8-14.3)
[2023-09-16 07:16] LABS: Potassium 3.8 mmol/L (3.5-5.1); Sodium 143 mmol/L (136-145)
[2023-09-16 07:17] LABS: Anion Gap 5 (5-15); Band Neutrophils % (manual) 0; Basophils % (manual) 0 (0.0-2.0); Blast Cells 0; Carbon Dioxide 26 mmol/L (20-30); Metamyelocytes % 0; Myelocytes % 0; Promyelocytes % 0; Reactive Lymphocytes 0
[2023-09-16 07:18] LABS: Calcium 10.4 mg/dL (8.5-10.1); Chloride 112 mmol/L (98-107)
[2023-09-16 07:22] LABS: BUN/Creatinine Ratio 22.2 (10.0-20.0); Blood Urea Nitrogen 14 mg/dL (9-23); Glucose 100 mg/dL (74-106)
[2023-09-16 09:29] LABS: Eosinophils % (manual) 1 (0-7); Lymphocytes % (manual) 7 (10.0-50.0); Monocytes % (manual) 3 (0-12); Platelet Estimate Adequate
[2023-09-16 09:30] LABS: Ovalocytes MODERATE
[2023-09-16] MEDS: LISINOPRIL 20 MG TAB PO SCH (10:39)
[2023-09-16] MEDS: PARoxetine 20 MG TAB PO SCH (10:39)
[2023-09-16] MEDS: ERTAPENEM SOD INJ 1 GM in SODIUM CHL 0.9% 50 ML IV SCH (18:27)
[2023-09-17] VITALS (8 sets, daily range): BP systolic 115–144; BP diastolic 74–91; PULSE 98–136; RESP 19–22; TEMP 98–98.4; O2SAT 95–99
[2023-09-17 01:58] LABS: Potassium 3.5 mmol/L (3.5-5.1)
[2023-09-17 02:05] LABS: Magnesium 1.4 mg/dL (1.6-2.6)
[2023-09-17] MEDS: MAGNESIUM SULFATE 1GM/100ML 100 ML IV SCH (02:43)
[2023-09-17] MEDS: METOPROLOL TARTRATE 1MG/1ML-5ML VIAL IV ONE (02:43)
[2023-09-17 06:05] LABS: Basophils # (auto) 0.1 10 ^3/uL (0-0.2); Eosinophils # (auto) 0.2 10 ^3/uL (0-0.8); Eosinophils % (auto) 1.3 % (0.0-7.0); Hemoglobin 9.4 g/dL (12.2-16.2); Lymphocytes # (auto) 0.9 10 ^3/uL (0.4-5.4); Nucleated Red Blood Cells % 0.1 %
[2023-09-17 06:09] LABS: Basophils % (auto) 0.4 % (0.0-2.0); Hematocrit 29.5 % (36.0-46.0); Lymphocytes % (auto) 6.9 % (10.0-50.0); Mean Corpuscular Hemoglobin 25.6 pg (28.0-32.0); Mean Corpuscular Hgb Conc. 31.8 g/dL (32.0-36.0); Mean Corpuscular Volume 80.3 fL (80.0-100.0); Monocytes # (auto) 0.6 10 ^3/uL (0-1.3); Monocytes % (auto) 4.5 % (0.0-12.0); Neutrophils # (auto) 11.9 10 ^3/uL (1.6-8.6); Neutrophils % (auto) 86.9 % (37.0-80.0); Red Blood Cells 3.67 10^6/uL (4.0-5.20); White Blood Cell 13.7 10^3/uL (4.4-10.8)
[2023-09-17 06:15] LABS: Red Cell Distribution Width 23.6 % (11.8-14.3)
[2023-09-17 06:22] LABS: Chloride 111 mmol/L (98-107); Potassium 3.4 mmol/L (3.5-5.1); Sodium 142 mmol/L (136-145)
[2023-09-17 06:23] LABS: Anion Gap 5 (5-15); Calcium 10.4 mg/dL (8.5-10.1); Carbon Dioxide 26 mmol/L (20-30)
[2023-09-17 06:28] LABS: BUN/Creatinine Ratio 18.5 (10.0-20.0); Blood Urea Nitrogen 10 mg/dL (9-23); Glucose 98 mg/dL (74-106)
[2023-09-18] VITALS (7 sets, daily range): BP systolic 136–141; BP diastolic 69–91; PULSE 75–145; RESP 17–20; TEMP 98–98.5; O2SAT 96–99
[2023-09-18] MEDS: METOPROLOL TARTRATE 50 MG TAB PO SCH (14:30)
[2023-09-19] VITALS (9 sets, daily range): BP systolic 108–145; BP diastolic 58–83; PULSE 74–120; RESP 17–20; TEMP 36.6; O2SAT 87–98
[2023-09-19 16:26] LABS: Eosinophils # (auto) 0.2 10 ^3/uL (0-0.8); Hemoglobin 9.5 g/dL (12.2-16.2); Mean Corpuscular Hemoglobin 25.2 pg (28.0-32.0); Monocytes # (auto) 0.8 10 ^3/uL (0-1.3)
[2023-09-19 16:30] LABS: Basophils # (auto) 0 10 ^3/uL (0-0.2); Basophils % (auto) 0.2 % (0.0-2.0); Hematocrit 30.4 % (36.0-46.0); Lymphocytes # (auto) 1.2 10 ^3/uL (0.4-5.4); Lymphocytes % (auto) 7.7 % (10.0-50.0); Mean Corpuscular Hgb Conc. 31.4 g/dL (32.0-36.0); Mean Corpuscular Volume 80.3 fL (80.0-100.0); Monocytes % (auto) 5.3 % (0.0-12.0); Neutrophils # (auto) 13.7 10 ^3/uL (1.6-8.6); Neutrophils % (auto) 85.8 % (37.0-80.0); Red Blood Cells 3.78 10^6/uL (4.0-5.20); Red Cell Distribution Width 23.2 % (11.8-14.3)
[2023-09-19 16:41] LABS: Chloride 110 mmol/L (98-107); Sodium 143 mmol/L (136-145)
[2023-09-19 16:42] LABS: Anion Gap 4 (5-15); Carbon Dioxide 29 mmol/L (20-30)
[2023-09-19 16:43] LABS: Calcium 10.9 mg/dL (8.7-10.4)
[2023-09-19 16:48] LABS: BUN/Creatinine Ratio 22.8 (10.0-20.0); Blood Urea Nitrogen 13 mg/dL (9-23); Glucose 105 mg/dL (74-106)
[2023-09-19 21:11] LABS: Urine Bacteria None Seen /hpf (None Seen)
[2023-09-19 21:54] LABS: Urine Blood 3+ /uL (Negative); Urine Budding Yeast MODERATE /hpf (None Seen); Urine Clarity Ex.Turbid (Clear); Urine Color Brown (Yellow); Urine Mucus FEW (None Seen); Urine Protein, UAD 2+ (Negative); Urine Specific Gravity 1.022 (1.001-1.035); Urine Urobilinogen 2 mg/dL (Negative); Urine WBC 653 /hpf (0 - 5); Urine WBC Clumps PRESENT /hpf (None Seen)
[2023-09-20] MEDS ORDERED: HALOPERIDOL LACTATE 5 MG/ML INJ VIAL IM PRN
[2023-09-20 01:40] VITALS: BP 135/76; PULSE 70; RESP 18; TEMP 97.7; O2SAT 86
[2023-09-20 08:30] VITALS: PULSE 103
[2023-09-20 09:00] VITALS: BP 145/79; PULSE 111; RESP 19; TEMP 98.1; O2SAT 90
[2023-09-20 16:49] VITALS: BP 159/96; PULSE 91; RESP 20; TEMP 98.2; O2SAT 86
[2023-09-20 19:30] VITALS: PULSE 88; RESP 19
[2023-09-20 21:10] VITALS: BP 156/94; PULSE 96; RESP 20; TEMP 97.9; O2SAT 89
[2023-09-21] VITALS (14 sets, daily range): BP systolic 130–150; BP diastolic 79–90; PULSE 75–98; RESP 16–24; TEMP 97.7–98.4; O2SAT 87–100
[2023-09-21 06:17] LABS: Basophils # (auto) 0.1 10 ^3/uL (0-0.2); Basophils % (auto) 0.3 % (0.0-2.0); Eosinophils # (auto) 0.2 10 ^3/uL (0-0.8); Eosinophils % (auto) 0.8 % (0.0-7.0); Mean Corpuscular Hgb Conc. 31.6 g/dL (32.0-36.0)
[2023-09-21 06:19] LABS: Hematocrit 32.8 % (36.0-46.0); Hemoglobin 10.3 g/dL (12.2-16.2); Lymphocytes % (auto) 5.3 % (10.0-50.0); Mean Corpuscular Hemoglobin 25.2 pg (28.0-32.0); Mean Corpuscular Volume 79.9 fL (80.0-100.0); Monocytes # (auto) 0.8 10 ^3/uL (0-1.3); Neutrophils # (auto) 17.8 10 ^3/uL (1.6-8.6); Neutrophils % (auto) 89.6 % (37.0-80.0); Red Cell Distribution Width 22.9 % (11.8-14.3); White Blood Cell 19.8 10^3/uL (4.4-10.8)
[2023-09-21] MEDS: DOXYCYCLINE 100MG/250ML 250 ML IV SCH (13:56)
[2023-09-21] MEDS: LEVALBUTEROL HCL 1.25 MG/3 ML NEB NEB SCH (15:45)
[2023-09-21] MEDS: LEVALBUTEROL HCL 1.25 MG/3 ML NEB ONE (15:59)
[2023-09-22] VITALS (17 sets, daily range): BP systolic 103–158; BP diastolic 54–86; PULSE 70–96; RESP 16–20; TEMP 97.5–98; O2SAT 93–100
[2023-09-22 07:03] LABS: Basophils # (auto) 0 10 ^3/uL (0-0.2); Eosinophils # (auto) 0.2 10 ^3/uL (0-0.8); Hemoglobin 9.6 g/dL (12.2-16.2); Red Cell Distribution Width 23.3 % (11.8-14.3); White Blood Cell 17.9 10^3/uL (4.4-10.8)
[2023-09-22 07:06] LABS: Basophils % (auto) 0.3 % (0.0-2.0); Hematocrit 30.7 % (36.0-46.0); Lymphocytes # (auto) 0.9 10 ^3/uL (0.4-5.4); Mean Corpuscular Hemoglobin 25.1 pg (28.0-32.0); Mean Corpuscular Hgb Conc. 31.3 g/dL (32.0-36.0); Mean Corpuscular Volume 80.1 fL (80.0-100.0); Monocytes # (auto) 0.6 10 ^3/uL (0-1.3); Monocytes % (auto) 3.6 % (0.0-12.0); Neutrophils # (auto) 16.1 10 ^3/uL (1.6-8.6); Neutrophils % (auto) 90.1 % (37.0-80.0); Red Blood Cells 3.83 10^6/uL (4.0-5.20)
[2023-09-22 11:25] LABS: Free T4 (Free Thyroxine) 1.12 ng/dL (0.89-1.76)
[2023-09-22 11:27] LABS: Folate (Folic Acid) 14.48 ng/mL (>5.38)
[2023-09-22] MEDS: ACETAMINOPHEN 325 MG TAB PO PRN (22:43)
[2023-09-23] VITALS (19 sets, daily range): BP systolic 105–175; BP diastolic 58–85; PULSE 57–104; RESP 12–20; TEMP 97.5–98.8; O2SAT 94–98
[2023-09-23] MEDS: hydrALAZINE HCL 20 MG/ML VL IV PRN (05:16)
[2023-09-23 06:04] LABS: Mean Corpuscular Hemoglobin 25.2 pg (28.0-32.0); Mean Corpuscular Hgb Conc. 31.6 g/dL (32.0-36.0); Mean Corpuscular Volume 79.8 fL (80.0-100.0)
[2023-09-23 06:07] LABS: Hematocrit 32.6 % (36.0-46.0); Hemoglobin 10.3 g/dL (12.2-16.2); Red Blood Cells 4.08 10^6/uL (4.0-5.20); White Blood Cell 25.1 10^3/uL (4.4-10.8)
[2023-09-23 06:26] LABS: Red Cell Distribution Width 23.3 % (11.8-14.3)
[2023-09-23 06:28] LABS: Basophils % (manual) 0 (0.0-2.0); Blast Cells 0; Eosinophils % (manual) 0 (0-7); Metamyelocytes % 0; Monocytes % (manual) 0 (0-12); Myelocytes % 0; Promyelocytes % 0; Reactive Lymphocytes 0
[2023-09-23 08:04] LABS: Band Neutrophils % (manual) 2; Lymphocytes % (manual) 4 (10.0-50.0); Platelet Estimate Adequate
[2023-09-23] MEDS: ERTAPENEM SOD INJ 1 GM in SODIUM CHL 0.9% 50 ML IV SCH (15:11)
[2023-09-24] VITALS (17 sets, daily range): BP systolic 92–129; BP diastolic 52–77; PULSE 16–90; RESP 16–74; TEMP 98–98.5; O2SAT 92–99
[2023-09-24 06:43] LABS: Anion Gap 6 (5-15); Calcium 10.8 mg/dL (8.7-10.4); Carbon Dioxide 27 mmol/L (20-30); Chloride 106 mmol/L (98-107); Potassium 3.7 mmol/L (3.5-5.1); Sodium 139 mmol/L (136-145)
[2023-09-24 06:49] LABS: BUN/Creatinine Ratio 22.5 (10.0-20.0); Blood Urea Nitrogen 16 mg/dL (9-23); Glucose 114 mg/dL (74-106); Magnesium 1.1 mg/dL (1.6-2.6)
[2023-09-24 06:51] LABS: Phosphorus 2.4 mg/dL (2.4-5.1)
[2023-09-24 06:53] LABS: Hemoglobin 10.3 g/dL (12.2-16.2)
[2023-09-24 06:56] LABS: Hematocrit 32.2 % (36.0-46.0); Mean Corpuscular Hemoglobin 25.4 pg (28.0-32.0); Mean Corpuscular Hgb Conc. 31.8 g/dL (32.0-36.0); Mean Corpuscular Volume 79.9 fL (80.0-100.0); Red Blood Cells 4.03 10^6/uL (4.0-5.20); White Blood Cell 22.7 10^3/uL (4.4-10.8)
[2023-09-24 07:32] LABS: Band Neutrophils % (manual) 0; Basophils % (manual) 0 (0.0-2.0); Blast Cells 0; Eosinophils % (manual) 0 (0-7); Metamyelocytes % 0; Myelocytes % 0; Promyelocytes % 0; Reactive Lymphocytes 0; Red Cell Distribution Width 23.1 % (11.8-14.3)
[2023-09-24 10:50] LABS: Lymphocytes % (manual) 4 (10.0-50.0); Monocytes % (manual) 6 (0-12); Platelet Estimate Adequate
[2023-09-24] MEDS: Ensure HIGH Protein Chocolate 8oz Bottle PO SCH (18:23)
[2023-09-25] VITALS (17 sets, daily range): BP systolic 115–130; BP diastolic 59–72; PULSE 74–97; RESP 16–20; TEMP 97.5–98.7; O2SAT 96–99
[2023-09-25 11:04] LABS: Basophils # (auto) 0 10 ^3/uL (0-0.2); Basophils % (auto) 0.2 % (0.0-2.0)
[2023-09-25 11:07] LABS: Eosinophils # (auto) 0 10 ^3/uL (0-0.8); Eosinophils % (auto) 0.3 % (0.0-7.0); Lymphocytes % (auto) 6.1 % (10.0-50.0); Mean Corpuscular Hgb Conc. 32.4 g/dL (32.0-36.0); Mean Corpuscular Volume 80.2 fL (80.0-100.0); Monocytes % (auto) 6.2 % (0.0-12.0); Neutrophils % (auto) 87.2 % (37.0-80.0); Red Blood Cells 3.86 10^6/uL (4.0-5.20)
[2023-09-26] VITALS (17 sets, daily range): BP systolic 107–136; BP diastolic 47–79; PULSE 65–107; RESP 16–22; TEMP 97.6–99.4; O2SAT 89–99
[2023-09-26 15:36] LABS: Basophils # (auto) 0 10 ^3/uL (0-0.2); Basophils % (auto) 0.2 % (0.0-2.0); Eosinophils # (auto) 0.1 10 ^3/uL (0-0.8); Eosinophils % (auto) 0.6 % (0.0-7.0); Hematocrit 31.8 % (36.0-46.0); Hemoglobin 10.2 g/dL (12.2-16.2); Lymphocytes % (auto) 7.2 % (10.0-50.0); Mean Corpuscular Hemoglobin 25.4 pg (28.0-32.0); Mean Corpuscular Volume 79.5 fL (80.0-100.0); Monocytes # (auto) 0.9 10 ^3/uL (0-1.3); Monocytes % (auto) 6.7 % (0.0-12.0); Neutrophils # (auto) 11.8 10 ^3/uL (1.6-8.6); Neutrophils % (auto) 85.3 % (37.0-80.0); White Blood Cell 13.9 10^3/uL (4.4-10.8)
[2023-09-26 15:37] LABS: Red Cell Distribution Width 22.8 % (11.8-14.3)
[2023-09-26] MEDS: MAGNESIUM OXIDE 400 MG TAB PO ONE (16:18)
[2023-09-26] MEDS: MAGNESIUM SULFATE 1GM/100ML 100 ML IV SCH (16:19)
[2023-09-27] VITALS (15 sets, daily range): BP systolic 95–154; BP diastolic 38–86; PULSE 74–98; RESP 16–20; TEMP 97.6–98; O2SAT 93–100
[2023-09-27 06:16] LABS: Basophils # (auto) 0 10 ^3/uL (0-0.2); Basophils % (auto) 0.2 % (0.0-2.0); Eosinophils # (auto) 0.1 10 ^3/uL (0-0.8); Lymphocytes # (auto) 0.9 10 ^3/uL (0.4-5.4)
[2023-09-27 06:18] LABS: Eosinophils % (auto) 0.8 % (0.0-7.0); Hematocrit 30.2 % (36.0-46.0); Hemoglobin 9.8 g/dL (12.2-16.2); Lymphocytes % (auto) 6.1 % (10.0-50.0); Mean Corpuscular Hgb Conc. 32.3 g/dL (32.0-36.0); Mean Corpuscular Volume 80.6 fL (80.0-100.0); Monocytes % (auto) 6.9 % (0.0-12.0); Neutrophils # (auto) 12.9 10 ^3/uL (1.6-8.6); Red Blood Cells 3.75 10^6/uL (4.0-5.20); Red Cell Distribution Width 22.7 % (11.8-14.3)
[2023-09-27 06:36] LABS: Albumin 2.7 g/dL (3.2-4.8); Alkaline Phosphatase 106 U/L (46-116); Anion Gap 5 (5-15); Aspartate Aminotransferase 10 U/L (13-40); BUN/Creatinine Ratio 29.3 (10.0-20.0); Blood Urea Nitrogen 17 mg/dL (9-23); Calcium 10.7 mg/dL (8.7-10.4); Carbon Dioxide 28 mmol/L (20-30); Chloride 104 mmol/L (98-107); Glucose 100 mg/dL (74-106); Magnesium 1.6 mg/dL (1.6-2.6); Potassium 3.7 mmol/L (3.5-5.1); Sodium 137 mmol/L (136-145)
[2023-09-27 06:37] LABS: Bilirubin, Total 0.3 mg/dL (0.2-1.0); Phosphorus 2.2 mg/dL (2.4-5.1); Total Protein 4.9 g/dL (5.7-8.2)
[2023-09-27 06:45] LABS: Alanine Aminotransferase < 9 U/L (7-40)
[2023-09-27] MEDS: MAGNESIUM SULFATE 1GM/100ML 100 ML IV SCH (11:27)
[2023-09-27] MEDS: MAGNESIUM OXIDE 400 MG TAB PO ONE (14:38)
== END 2023-09-27 23:12 | DRG 871 ==
LOC: EDBD 17:31 → ER 17:31 → TELE 23:05 → TELE-WESTW 23:13
PROVIDERS: ADMIT Nurse Practitioner Family; ATTEND Internal Medicine
DX: A41.9 Sepsis, unspecified organism (principal); G93.41 Metabolic encephalopathy; N13.6 Pyonephrosis; R44.0 Auditory hallucinations; E87.6 Hypokalemia; R29.6 Repeated falls; E83.42 Hypomagnesemia; I11.0 Hypertensive heart disease with heart failure; I25.10 Atherosclerotic heart disease of native coronary artery without angina pectoris; D32.9 Benign neoplasm of meninges, unspecified; I50.9 Heart failure, unspecified; R56.9 Unspecified convulsions; E78.5 Hyperlipidemia, unspecified; R31.0 Gross hematuria; J44.89 Other specified chronic obstructive pulmonary disease; G30.9 Alzheimer's disease, unspecified; F02.80 Dementia in other diseases classified elsewhere, unspecified severity, without behavioral disturbance, psychotic disturbance, mood disturbance, and anxiety; N28.89 Other specified disorders of kidney and ureter; Z90.710 Acquired absence of both cervix and uterus; I25.2 Old myocardial infarction; Z79.02 Long term (current) use of antithrombotics/antiplatelets; Z79.899 Other long term (current) drug therapy; Z86.73 Personal history of transient ischemic attack (TIA), and cerebral infarction without residual deficits; Z82.49 Family history of ischemic heart disease and other diseases of the circulatory system; Z83.3 Family history of diabetes mellitus; Z82.3 Family history of stroke
CPT/HCPCS: 36415; 70450; 70551; 71045; 74176; 80048; 80053; 81001; 82140; 82607; 82746; 83605; 83735; 84100; 84132; 84439; 84443; 84484; 85007; 85025; 85027; 85610; 87040; 87081; 87086; 93005; 94640; 97110; 97116; 97163; 97530; C9113; G0378; J1335; J2470; J3480; J3490

== ENCOUNTER 2023-10-02 22:40 | Inpatient (IN) | payer OTHER ==
[~2023-10-02] VITALS: Ht 157.5 cm; Wt 49.0 kg
[2023-10-03] VITALS (9 sets, daily range): BP systolic 110–138; BP diastolic 68–75; PULSE 82–105; RESP 18–22; TEMP 98.1–98.5; O2SAT 92–99
[2023-10-03 02:07] LABS: Basophils # (auto) 0.1 10 ^3/uL (0-0.2); Basophils % (auto) 0.5 % (0.0-2.0); Eosinophils # (auto) 0.1 10 ^3/uL (0-0.8); Eosinophils % (auto) 0.5 % (0.0-7.0); Hematocrit 34.4 % (36.0-46.0); Hemoglobin 10.7 g/dL (12.2-16.2); Lymphocytes # (auto) 1.3 10 ^3/uL (0.4-5.4); Lymphocytes % (auto) 7.2 % (10.0-50.0); Mean Corpuscular Hemoglobin 25.2 pg (28.0-32.0); Mean Corpuscular Hgb Conc. 31.2 g/dL (32.0-36.0); Mean Corpuscular Volume 80.8 fL (80.0-100.0); Monocytes # (auto) 1.3 10 ^3/uL (0-1.3); Monocytes % (auto) 7.4 % (0.0-12.0); Neutrophils # (auto) 15.4 10 ^3/uL (1.6-8.6); Neutrophils % (auto) 84.4 % (37.0-80.0); Nucleated Red Blood Cells % 0.3 %; Red Blood Cells 4.25 10^6/uL (4.0-5.20); Red Cell Distribution Width 22.5 % (11.8-14.3); White Blood Cell 18.2 10^3/uL (4.4-10.8)
[2023-10-03 02:22] LABS: Alanine Aminotransferase 10 U/L (7-40); Albumin 3.4 g/dL (3.2-4.8); Alkaline Phosphatase 122 U/L (46-116); Anion Gap 4 (5-15); Aspartate Aminotransferase 11 U/L (13-40); BUN/Creatinine Ratio 17.6 (10.0-20.0); Bilirubin, Total 0.3 mg/dL (0.2-1.0); Blood Alcohol < 3.0 mg/dL (<10); Blood Urea Nitrogen 16 mg/dL (9-23); Calcium 10.9 mg/dL (8.5-10.1); Carbon Dioxide 31 mmol/L (20-30); Chloride 103 mmol/L (98-107); Glucose 113 mg/dL (74-106); Potassium 3.5 mmol/L (3.5-5.1); Sodium 138 mmol/L (136-145)
[2023-10-03] MEDS: ALBUTEROL SULF 2.5 MG/0.5ML(0.5%) NEB SOLN NEB ONE (04:14)
[2023-10-03] MEDS: IPRATROPIUM BROM 0.5 MG/2.5ML INH SOL NEB ONE (04:14)
[2023-10-03] MEDS ORDERED: ONDANSETRON HCL 4 MG/2 ML VIAL IV PRN (04:30)
[2023-10-03] MEDS ORDERED: ACETAMINOPHEN 325 MG TAB PO PRN (04:30)
[2023-10-03] MEDS: levoFLOXacin 750MG 150 ML IV ONE (04:54)
[2023-10-03] MEDS: methylPREDNISolone SOD SUCC 125 MG/2 ML VL IV ONE (04:55)
[2023-10-03 04:59] LABS: Anisocytosis Slight
[2023-10-03 05:01] LABS: Large Platelets FEW; Platelet Estimate Adequa
[2023-10-03 05:02] LABS: Rapid Influenza A Negative (Negative); Rapid Influenza B Negative (Negative)
[2023-10-03 05:03] LABS: COVID19 ANTIGEN SOFIA FIA POSITIVE (NEGATIVE)
[2023-10-03] MEDS: IPRATROPIUM BROM 0.5 MG/2.5ML INH SOL NEB SCH (06:50)
[2023-10-03 06:54] LABS: Urine Bacteria None Seen /hpf (None Seen)
[2023-10-03 07:18] LABS: Urine Blood 3+ /uL (Negative); Urine Budding Yeast OCCASIONAL /hpf (None Seen); Urine Color Yellow (Yellow); Urine Protein, UAD 1+ (Negative); Urine Specific Gravity 1.015 (1.001-1.035); Urine Urobilinogen Normal (Negative); Urine WBC 31 /hpf (0 - 5); Urine pH 5.5 (5.0-9.0)
[2023-10-03 07:24] LABS: Urine Clarity Cloudy (Clear)
[2023-10-03 07:25] LABS: Amphetamine Screen, Urine Neg (NEGATIVE); Barbiturate Scree,Urine Neg (NEGATIVE); Benzodiazephine Screen, Urine Neg (NEGATIVE); Cocaine Screen, Urine Neg (NEGATIVE)
[2023-10-03 07:26] LABS: Cannabinoid Screen, Urine Neg (NEGATIVE); Opiate Scree,Urine Neg (NEGATIVE); Phencyclidine Screen, Urine Neg (NEGATIVE)
[2023-10-03 10:02] LABS: Mean Corpuscular Hemoglobin 25.6 pg (28.0-32.0); White Blood Cell 11.6 10^3/uL (4.4-10.8)
[2023-10-03] MEDS: methylPREDNISolone SOD SUCC 40 MG/ML VL IV SCH (10:03)
[2023-10-03] MEDS: ZINC SULFATE 220mg CAP or TAB PO SCH (10:03)
[2023-10-03] MEDS: FAMOTIDINE 20 MG TAB PO SCH (10:03)
[2023-10-03] MEDS: ASCORBIC ACID 500 MG TAB PO SCH (10:03)
[2023-10-03 10:04] LABS: Hemoglobin 9.6 g/dL (12.2-16.2); Mean Corpuscular Hgb Conc. 31.9 g/dL (32.0-36.0); Mean Corpuscular Volume 80.2 fL (80.0-100.0); Red Blood Cells 3.74 10^6/uL (4.0-5.20)
[2023-10-03] MEDS: ENOXAPARIN SOD 40 MG/0.4 ML SYRINGE SC SCH (10:04)
[2023-10-03 10:10] LABS: Red Cell Distribution Width 22.1 % (11.8-14.3)
[2023-10-03 10:12] LABS: Basophils % (manual) 0 (0.0-2.0); Blast Cells 0; Eosinophils % (manual) 0 (0-7); Metamyelocytes % 0; Myelocytes % 0; Promyelocytes % 0; Reactive Lymphocytes 0
[2023-10-03 10:14] LABS: Alkaline Phosphatase 104 U/L (46-116); Anion Gap 5 (5-15); Aspartate Aminotransferase 10 U/L (13-40); BUN/Creatinine Ratio 23.4 (10.0-20.0); Blood Urea Nitrogen 18 mg/dL (9-23); Calcium 10.4 mg/dL (8.5-10.1); Carbon Dioxide 29 mmol/L (20-30); Chloride 104 mmol/L (98-107); Glucose 141 mg/dL (74-106); Potassium 3.6 mmol/L (3.5-5.1); Sodium 138 mmol/L (136-145)
[2023-10-03 10:15] LABS: Bilirubin, Total 0.3 mg/dL (0.2-1.0); Total Protein 5.3 g/dL (5.7-8.2)
[2023-10-03 10:18] LABS: Alanine Aminotransferase < 9 U/L (7-40)
[2023-10-03 10:32] LABS: Anisocytosis Moderate; Band Neutrophils % (manual) 3; Hypochromia Slight; Large Platelets FEW; Lymphocytes % (manual) 4 (10.0-50.0); Monocytes % (manual) 2 (0-12); Platelet Estimate Adequate
[2023-10-03] MEDS ORDERED: REMDESIVIR PER PHARMACY 0 ML IV SCH (11:45)
[2023-10-03] MEDS: REMDESIVIR 200 MG in NS 210ml LOADING DOSE ADULT IV ONE (13:02)
[2023-10-03] MEDS: diphenhdrAMINE HCL 50 MG/1 ML VL IV ONE (22:45)
[2023-10-04] VITALS (12 sets, daily range): BP systolic 111–131; BP diastolic 78–85; PULSE 83–112; RESP 15–21; TEMP 97.4–98.2; O2SAT 92–100
[2023-10-04] MEDS: LORazepam 2MG/ML-1ML VIAL IV PRN (00:14)
[2023-10-04] MEDS: METOPROLOL TARTRATE 1MG/1ML-5ML VIAL IV ONE (04:52)
[2023-10-04 08:12] LABS: Hematocrit 33.4 % (36.0-46.0); Hemoglobin 10.6 g/dL (12.2-16.2); Mean Corpuscular Hemoglobin 25.4 pg (28.0-32.0); Mean Corpuscular Hgb Conc. 31.9 g/dL (32.0-36.0); Mean Corpuscular Volume 79.7 fL (80.0-100.0); Red Blood Cells 4.19 10^6/uL (4.0-5.20); White Blood Cell 18.4 10^3/uL (4.4-10.8)
[2023-10-04 08:15] LABS: Red Cell Distribution Width 22.2 % (11.8-14.3)
[2023-10-04 08:17] LABS: Basophils % (manual) 0 (0.0-2.0); Blast Cells 0; Eosinophils % (manual) 0 (0-7); Metamyelocytes % 0; Myelocytes % 0; Promyelocytes % 0; Reactive Lymphocytes 0
[2023-10-04 08:41] LABS: Band Neutrophils % (manual) 1; Lymphocytes % (manual) 7 (10.0-50.0); Monocytes % (manual) 4 (0-12)
[2023-10-04 08:44] LABS: Anisocytosis Moderate; Hypochromia Slight; Ovalocytes FEW; Platelet Estimate Adequate; Tear Drop Cells FEW
[2023-10-04 08:45] LABS: Chloride 103 mmol/L (98-107); Sodium 138 mmol/L (136-145)
[2023-10-04 08:46] LABS: Anion Gap 9 (5-15); Calcium 10.8 mg/dL (8.7-10.4); Carbon Dioxide 26 mmol/L (20-30)
[2023-10-04 08:51] LABS: Glucose 128 mg/dL (74-106)
[2023-10-04 09:00] LABS: BUN/Creatinine Ratio 24.8 (10.0-20.0)
[2023-10-04 09:06] LABS: Blood Urea Nitrogen 25 mg/dL (9-23); Potassium 5.2 mmol/L (3.5-5.1)
[2023-10-04] MEDS: REMDESIVIR 100mg 100 MG in SODIUM CHL 0.9% 230 ML IV SCH (15:22)
[2023-10-05] VITALS (15 sets, daily range): BP systolic 105–139; BP diastolic 60–86; PULSE 70–133; RESP 17–22; TEMP 97.7–98.4; O2SAT 92–100
[2023-10-05 11:29] LABS: Hematocrit 35.8 % (36.0-46.0); Hemoglobin 11.2 g/dL (12.2-16.2); Mean Corpuscular Hemoglobin 25.8 pg (28.0-32.0); Mean Corpuscular Hgb Conc. 31.3 g/dL (32.0-36.0); Mean Corpuscular Volume 82.2 fL (80.0-100.0); Red Blood Cells 4.35 10^6/uL (4.0-5.20); White Blood Cell 28.5 10^3/uL (4.4-10.8)
[2023-10-05 11:38] LABS: Red Cell Distribution Width 22.2 % (11.8-14.3)
[2023-10-05 11:40] LABS: Basophils % (manual) 0 (0.0-2.0); Blast Cells 0; Eosinophils % (manual) 0 (0-7); Metamyelocytes % 0; Myelocytes % 0; Promyelocytes % 0; Reactive Lymphocytes 0
[2023-10-05 11:44] LABS: Alanine Aminotransferase 10 U/L (7-40); Albumin 2.9 g/dL (3.2-4.8); Alkaline Phosphatase 93 U/L (46-116); Anion Gap 7 (5-15); Aspartate Aminotransferase 11 U/L (13-40); BUN/Creatinine Ratio 34.5 (10.0-20.0); Bilirubin, Total 0.2 mg/dL (0.2-1.0); Blood Urea Nitrogen 30 mg/dL (9-23); Calcium 10.8 mg/dL (8.7-10.4); Carbon Dioxide 29 mmol/L (20-30); Chloride 105 mmol/L (98-107); Glucose 108 mg/dL (74-106); Potassium 3.9 mmol/L (3.5-5.1); Sodium 141 mmol/L (136-145); Total Protein 5.4 g/dL (5.7-8.2)
[2023-10-05] MEDS: levoFLOXacin 750MG 150 ML IV SCH (11:59)
[2023-10-05 12:31] LABS: Monocytes % (manual) 3 (0-12)
[2023-10-05 12:32] LABS: Band Neutrophils % (manual) 3; Lymphocytes % (manual) 5 (10.0-50.0)
[2023-10-05 12:34] LABS: Anisocytosis Slight; Hypochromia Slight; Ovalocytes FEW; Platelet Estimate Adequate; Tear Drop Cells FEW
[2023-10-05] MEDS: methylPREDNISolone SOD SUCC 40 MG/ML VL IV SCH (13:20)
[2023-10-06] VITALS (18 sets, daily range): BP systolic 109–150; BP diastolic 66–102; PULSE 57–143; RESP 16–20; TEMP 97.4–98.6; O2SAT 92–100
[2023-10-06 06:15] LABS: Chloride 106 mmol/L (98-107); Potassium 4.4 mmol/L (3.5-5.1); Sodium 138 mmol/L (136-145)
[2023-10-06 06:16] LABS: Anion Gap 7 (5-15); Carbon Dioxide 25 mmol/L (20-30)
[2023-10-06 06:21] LABS: Blood Urea Nitrogen 26 mg/dL (9-23); Glucose 119 mg/dL (74-106)
[2023-10-06 06:26] LABS: Hematocrit 38.4 % (36.0-46.0); Hemoglobin 11.6 g/dL (12.2-16.2); Mean Corpuscular Hemoglobin 25.6 pg (28.0-32.0); Mean Corpuscular Hgb Conc. 30.2 g/dL (32.0-36.0); Mean Corpuscular Volume 84.5 fL (80.0-100.0); Red Blood Cells 4.55 10^6/uL (4.0-5.20); White Blood Cell 25.6 10^3/uL (4.4-10.8)
[2023-10-06 06:27] LABS: Red Cell Distribution Width 22.8 % (11.8-14.3)
[2023-10-06 06:28] LABS: Band Neutrophils % (manual) 0; Basophils % (manual) 0 (0.0-2.0); Blast Cells 0; Eosinophils % (manual) 0 (0-7); Metamyelocytes % 0; Myelocytes % 0; Promyelocytes % 0; Reactive Lymphocytes 0
[2023-10-06 06:55] LABS: Lymphocytes % (manual) 4 (10.0-50.0); Monocytes % (manual) 1 (0-12)
[2023-10-06 06:56] LABS: Anisocytosis Slight; Ovalocytes FEW; Platelet Estimate Adequate
[2023-10-06] MEDS ORDERED: VANCOMYCIN PER PHARMACY 0 MG IV SCH (08:00)
[2023-10-06] MEDS: dilTIAZem 25 MG/5 ML VIAL IV ONE (09:54)
[2023-10-06] MEDS: VANCOMYCIN 1GM/200ML 200 ML IV ONE (10:04)
[2023-10-06] MEDS: dilTIAZem 25 MG/5 ML VIAL IV PRN (13:55)
[2023-10-06 14:40] LABS: Hemoglobin 10.6 g/dL (12.2-16.2)
[2023-10-06 14:43] LABS: Hematocrit 32.8 % (36.0-46.0); Mean Corpuscular Hemoglobin 26.2 pg (28.0-32.0); Mean Corpuscular Hgb Conc. 32.2 g/dL (32.0-36.0); Mean Corpuscular Volume 81.2 fL (80.0-100.0); Red Blood Cells 4.04 10^6/uL (4.0-5.20); Red Cell Distribution Width 21.5 % (11.8-14.3)
[2023-10-06 14:50] LABS: Band Neutrophils % (manual) 0; Basophils % (manual) 0 (0.0-2.0); Blast Cells 0; Eosinophils % (manual) 0 (0-7); Metamyelocytes % 0; Myelocytes % 0; Promyelocytes % 0; Reactive Lymphocytes 0
[2023-10-06 17:21] LABS: Anisocytosis Slight; Lymphocytes % (manual) 2 (10.0-50.0); Macrocytosis Slight; Monocytes % (manual) 1 (0-12); Ovalocytes FEW; Platelet Estimate Adequate
[2023-10-06] MEDS: METOPROLOL SUCCINATE XL 50 MG TAB PO ONE (17:45)
[2023-10-06] MEDS: DIGOXIN (250MCG/ML) 2 ML AMPULE IV SCH (19:54)
[2023-10-06] MEDS: D5W/SOD CHLO 0.9% 1,000 ML IV SCH (23:07)
[2023-10-07] VITALS (15 sets, daily range): BP systolic 114–156; BP diastolic 74–97; PULSE 53–118; RESP 16–20; TEMP 97.2–98.6; O2SAT 92–100
[2023-10-07] MEDS: DIGOXIN (250MCG/ML) 2 ML AMPULE IV SCH
[2023-10-07 06:08] LABS: Hematocrit 31.3 % (36.0-46.0); Hemoglobin 10.3 g/dL (12.2-16.2); Mean Corpuscular Hemoglobin 26.5 pg (28.0-32.0); Mean Corpuscular Hgb Conc. 32.9 g/dL (32.0-36.0); Mean Corpuscular Volume 80.5 fL (80.0-100.0); Red Blood Cells 3.89 10^6/uL (4.0-5.20); White Blood Cell 21.1 10^3/uL (4.4-10.8)
[2023-10-07 06:13] LABS: Anion Gap 4 (5-15); Calcium 10.9 mg/dL (8.7-10.4); Carbon Dioxide 30 mmol/L (20-30); Chloride 107 mmol/L (98-107); Potassium 3.9 mmol/L (3.5-5.1); Sodium 141 mmol/L (136-145)
[2023-10-07 06:19] LABS: BUN/Creatinine Ratio 45.8 (10.0-20.0); Blood Urea Nitrogen 33 mg/dL (9-23); Glucose 177 mg/dL (74-106)
[2023-10-07 06:40] LABS: Band Neutrophils % (manual) 0; Basophils % (manual) 0 (0.0-2.0); Blast Cells 0; Eosinophils % (manual) 0 (0-7); Metamyelocytes % 0; Myelocytes % 0; Promyelocytes % 0; Reactive Lymphocytes 0
[2023-10-07 08:28] LABS: Anisocytosis Slight; Lymphocytes % (manual) 3 (10.0-50.0); Monocytes % (manual) 3 (0-12); Ovalocytes FEW; Platelet Estimate Adequate; Smudge Cells 1 /100 WBC
[2023-10-07] MEDS: VANCOMYCIN 750mg/150ml 150 ML IV SCH (09:56)
[2023-10-07] MEDS: METOPROLOL SUCCINATE XL 50 MG TAB PO SCH (10:07)
[2023-10-07] MEDS: D5W/SOD CHLO 0.9% 1,000 ML IV SCH (10:37)
[2023-10-08] VITALS (16 sets, daily range): BP systolic 99–152; BP diastolic 68–104; PULSE 63–125; RESP 16–22; TEMP 97.9–98.7; O2SAT 92–100
[2023-10-08] MEDS: METOPROLOL SUCCINATE XL 50 MG TAB PO ONE (14:11)
[2023-10-08] MEDS: VANCOMYCIN 750mg/150ml 150 ML IV SCH (15:42)
[2023-10-08] MEDS ORDERED: METOPROLOL TARTRATE 50 MG TAB PO SCH (22:00)
[2023-10-08] MEDS: IVABRADINE 5 MG TAB PO SCH (23:15)
[2023-10-08] MEDS: METOPROLOL TARTRATE 50 MG TAB PO SCH (23:24)
[2023-10-09] VITALS (14 sets, daily range): BP systolic 73–152; BP diastolic 37–104; PULSE 63–142; RESP 16–24; TEMP 96.4–98.5; O2SAT 80–100
[2023-10-09 11:47] LABS: Base Excess -2.7 mmol/L (-2.0-2.0)
[2023-10-10] VITALS (17 sets, daily range): BP systolic 91–144; BP diastolic 54–81; PULSE 72–144; RESP 20–26; TEMP 97.7–98.9; O2SAT 93–100
[2023-10-10 07:48] LABS: Potassium 4.8 mmol/L (3.5-5.1)
[2023-10-10 07:49] LABS: Calcium 8.7 mg/dL (8.7-10.4)
[2023-10-10 07:54] LABS: BUN/Creatinine Ratio 13.9 (10.0-20.0)
[2023-10-10 07:55] LABS: Albumin 2.2 g/dL (3.2-4.8)
[2023-10-10 07:56] LABS: Phosphorus 11.2 mg/dL (2.4-5.1)
[2023-10-10] MEDS: DIGOXIN (250MCG/ML) 2 ML AMPULE IV ONE (17:41)
[2023-10-10 19:15] LABS: COVID19 ANTIGEN SOFIA FIA NEGATIVE (NEGATIVE)
[2023-10-10] MEDS: METOPROLOL TARTRATE 1MG/1ML-5ML VIAL IV PRN (22:39)
[2023-10-11] VITALS (8 sets, daily range): BP systolic 115–143; BP diastolic 54–75; PULSE 104–142; RESP 20–24; TEMP 97.5–97.6; O2SAT 92–99
[2023-10-11] MEDS: FAMOTIDINE 20 MG TAB PO SCH (10:41)
[2023-10-11] MEDS ORDERED: AMIODARONE 450mg/250ml AE 250 ML IV SCH (11:00)
[2023-10-11] MEDS ORDERED: AMIODARONE BOLUS KIT 100 ML IV ONE (11:00)
[2023-10-12] MEDS ORDERED: ENOXAPARIN SOD 30 MG/0.3 ML SYRINGE SC SCH (10:00)
== END 2023-10-11 16:07 | DRG 177 ==
LOC: EDBD 22:40 → EDSEX 22:40 → ER 22:40 → TELE 10-03 04:30 → OBSVTOIN 10-03 10:37 → TELE-EAST 10-04 17:56
PROVIDERS: ADMIT Nurse Practitioner Family; ATTEND Internal Medicine
PROC: XW033E5 Introduction of Remdesivir Anti-infective into Peripheral Vein, Percutaneous Approach, New Technology Group 5 (ICD-10-PCS; principal; 2023-10-03)
DX: U07.1 COVID-19 (principal); J12.82 Pneumonia due to coronavirus disease 2019; J96.21 Acute and chronic respiratory failure with hypoxia; J44.0 Chronic obstructive pulmonary disease with (acute) lower respiratory infection; I50.30 Unspecified diastolic (congestive) heart failure; N39.0 Urinary tract infection, site not specified; G93.40 Encephalopathy, unspecified; J44.9 Chronic obstructive pulmonary disease, unspecified; S09.90XA Unspecified injury of head, initial encounter; E78.00 Pure hypercholesterolemia, unspecified; I11.0 Hypertensive heart disease with heart failure; W18.39XA Other fall on same level, initial encounter; Z66 Do not resuscitate; T50.995A Adverse effect of other drugs, medicaments and biological substances, initial encounter; Y93.89 Activity, other specified; I25.2 Old myocardial infarction; Z88.0 Allergy status to penicillin; Y92.89 Other specified places as the place of occurrence of the external cause; Y99.8 Other external cause status; Z82.49 Family history of ischemic heart disease and other diseases of the circulatory system
CPT/HCPCS: 36415; 36600; 70450; 71045; 72125; 80048; 80053; 80069; 80202; 80307; 80320; 81001; 82140; 82565; 82805; 83605; 83880; 84484; 85007; 85025; 85027; 87040; 87086; 87426; 87804; 93005; 93306; 94640; 96365; 96366; 96375; 97110; 97116; 97163; 97530; G0378; J1956; J7042